=== PATIENT | male | born 1990 | race Caucasian/White ===

== ENCOUNTER 2019-03-27 18:50 | Emergency (ER) | payer BC, OTHER ==
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
== END 2019-03-27 20:15 | disposition home or self-care (01) ==
LOC: MW.ED 18:50
DX: M25.562 Pain in left knee (principal); W22.8XXA Striking against or struck by other objects, initial encounter
CPT/HCPCS: 73562-26-LT; 73562-LT; 99283; 99283-25

== ENCOUNTER 2019-08-28 15:20 | Emergency (ER) | payer BC, OTHER ==
[2019-08-28] MEDS ORDERED: Bacitracin Oint 1 GM U/D Packet TOP ONE (15:44)
--- NOTE | 2019-08-28 16:02 | EDM.PDOC ---
ED HPI GENERAL MEDICAL PROBLEM - General Chief Complaint: Laceration Stated Complaint: CUT HAND WITH RAZOR Time Seen by Provider: 08/28/19 15:24 - History of Present Illness INITIAL COMMENTS - FREE TEXT/NARRATIVE: History of present illness: Patient presents approximately 1 hour after slipping with a box knife and cutting his left hand. He was installing shocks on a truck and was cutting a plastic retainer cable when the knife slipped striking his left nondominant hand just lateral aspect of the nondominant thumb. Bleeding is controlled his tetanus is up-to-date no other injuries no other concerns nothing makes it better or worse. Review of systems: As per history of present illness and below otherwise all systems reviewed and negative. Past medical history: As per history of present illness and as reviewed below otherwise noncontributory. Surgical history: As per history of present illness and as reviewed below otherwise noncontributory. Social history: No reported history of drug or alcohol abuse. Family history: As per history of present illness and as reviewed below otherwise noncontributory. Physical exam: HEENT: Atraumatic, normocephalic, pupils reactive, negative for conjunctival pallor or scleral icterus, mucous membranes moist, throat clear, neck supple, nontender, trachea midline. Lungs: Clear to auscultation, breath sounds equal bilaterally, chest nontender. Heart: S1S2, regular, negative for clicks, rubs, or JVD. Abdomen: Soft, nondistended, nontender. Negative for masses or hepatosplenomegaly. Negative for costovertebral tenderness. Pelvis: Stable nontender. Genitourinary: Deferred. Rectal: Deferred. Extremities: Atraumatic, negative for cords or calf pain. Neurovascular unremarkable. There is an approximate 6 cm deep laceration to the left lateral thumb and thenar eminence to the wrist. The distal cap refill and sensation motor function all appear to be intact. Neuro: Awake, alert, oriented. Cranial nerves II through XII unremarkable. Cerebellum unremarkable. Motor and sensory unremarkable throughout. Exam nonfocal. Diagnostics: [] Therapeutics: [] Impression: Hand laceration [] Plan: Clean explore repair [] Definitive disposition and diagnosis as appropriate pending reevaluation and review of above. left hand Pain Score (Numeric/FACES): 2 - Related Data Allergies Allergy/AdvReac Type Severity Reaction Status Date / Time No Known Allergies Allergy Verified 08/28/19 15:47 Home Meds: Home Meds ALPRAZolam [Alprazolam ER] 1 mg PO ASDIRECTED PRN 03/27/19 [History] lisinopriL [Zestril] 10 mg PO DAILY 03/27/19 [History] Past Medical History Cardiovascular History: Reports: Hypertension Psychiatric History: Reports: Anxiety - Past Surgical History HEENT Surgical History: Reports: Tonsillectomy Social & Family History - Family History Family Medical History: Noncontributory ED ROS GENERAL - Review of Systems Review Of Systems: See Below ED EXAM, SKIN/RASH Exam: See Below Course - Vital Signs Text/Narrative:: Procedure: The sick centimeter left hand laceration was soaked initially with wound cleanser then it was anesthetized with 15 mL of 1% lidocaine it was then copiously irrigated at the sink with water wound was then explored it was full- thickness and involve some muscle tissue in the thenar eminence no tendon injury was noted no foreign bodies were located full tendon function was intact. The wound was then closed using 15 30 simple interrupted nylon sutures patient tolerated the procedure well he was given instructions to return to the ED in 10 days for suture removal or immediately if there were signs of infection such as redness swelling pus or increased pain. Last Recorded V/S: Last Vital Signs Temp 36.6 C 08/28/19 15:43 Pulse 92 08/28/19 15:43 Resp 17 08/28/19 15:43 BP 165/93 H 08/28/19 15:43 Pulse Ox 96 08/28/19 15:43 - Orders/Labs/Meds Meds: Medications Discontinued Medications Generic Name Dose Route Start Last Admin Trade Name Miquelq PRN Reason Stop Dose Admin Bacitracin 1 dose 08/28/19 15:44 Bacitracin Oint 1 Gm TOP 08/28/19 15:45 ONETIME ONE Lidocaine HCl 10 ml 08/28/19 15:43 Xylocaine-Mpf 1% INJECT 08/28/19 15:44 ONETIME ONE Departure - Departure Time of Disposition: 16:24 Disposition: Home, Self-Care 01 Condition: Good Clinical Impression: Laceration of hand Qualifiers: Encounter type: initial encounter Foreign body presence: without foreign body Laterality: left Qualified Code(s): S61.412A - Laceration without foreign body of left hand, initial encounter - Discharge Information *PRESCRIPTION DRUG MONITORING PROGRAM REVIEWED*: Not Applicable *COPY OF PRESCRIPTION DRUG MONITORING REPORT IN PATIENT CHARAN: Not Applicable Instructions: Laceration Care, Adult Referrals: PCP,Not In Area [Primary Care Provider] - Additional Instructions: The following information is given to patients seen in the emergency department who are being discharged to home. This information is to outline your options for follow-up care. We provide all patients seen in our emergency department with a follow-up referral. The need for follow-up, as well as the timing and circumstances, are variable depending upon the specifics of your emergency department visit. If you don't have a primary care physician on staff, we will provide you with a referral. We always advise you to contact your personal physician following an emergency department visit to inform them of the circumstance of the visit and for follow-up with them and/or the need for any referrals to a consulting specialist. The emergency department will also refer you to a specialist when appropriate. This referral assures that you have the opportunity for follow-up care with a specialist. All of these measure are taken in an effort to provide you with optimal care, which includes your follow-up. Under all circumstances we always encourage you to contact your private physician who remains a resource for coordinating your care. When calling for follow-up care, please make the office aware that this follow-up is from your recent emergency room visit. If for any reason you are refused follow-up, please contact the [facility] Emergency Department at and asked to speak to the emergency department charge nurse. Return to the ED in 10 days for suture removal return immediately for signs of infection such as redness swelling or pus. Sepsis Event Note (ED) - Evaluation Sepsis Screening Result: No Definite Risk - Focused Exam Vital Signs: Vital Signs Temp Pulse Resp BP Pulse Ox 08/28/19 15:43 36.6 C 92 17 165/93 H 96
== END 2019-08-28 16:48 | disposition home or self-care (01) ==
LOC: MW.ED 15:20
DX: S61.012A Laceration without foreign body of left thumb without damage to nail, initial encounter (principal); I10 Essential (primary) hypertension; F41.9 Anxiety disorder, unspecified; Z79.899 Other long term (current) drug therapy; W26.0XXA Contact with knife, initial encounter
CPT/HCPCS: 12002; 99282; J2001

== ENCOUNTER 2023-03-08 11:04 | Emergency (ER) | payer BC | END 2023-03-08 12:48 | disposition home or self-care (01) | LOC: MW.ED 11:04 | DX: S61.411A Laceration without foreign body of right hand, initial encounter (principal); I10 Essential (primary) hypertension; Z79.899 Other long term (current) drug therapy; W26.8XXA Contact with other sharp object(s), not elsewhere classified, initial encounter | CPT/HCPCS: 12001; 99282; 99283 ==